=== PATIENT | female | born 1990 | race Caucasian/White ===

== ENCOUNTER 2016-12-02 13:57 | Inpatient (IN) | payer OTHER ==
[~2016-12-02] VITALS: Ht 162.6 cm; Wt 123.1 kg
[~2016-12-02 13:57] MED LIST: ABILIFY5 MG PO; AMOXICILLIN500 MG PO; ARIPIPRAZOLE10 MG PO; CONCERTA36 MG; CORTISPORIN-TC10 M1 RIGHT EAR; DELTASONE20 M1 PO; EXCEDRIN EXTRA1 EACH PO; HYDROXYZINE HCL25 MG PO; LORAZEPAM1 MG PO; METRONIDAZOLE500 MG PO; PRAZOSIN HCL1 MG PO; PRAZOSIN HCL2 MG PO; PREDNISONE20 MG PO; PROMETHAZINE HC25 M1 PO; PROPRANOLOL HCL80 MG; RANITIDINE HCL300 MG PO; SPRINTEC1 EACH; TOPAMAX25 MG PO; TOPAMAX50 MG PO; TRAZODONE HCL50 MG PO; TYLENOL WITH C1 EACH PO; VENTOLIN HFA18 GM IH; VITAMIN D2000 UNI1 PO; ZOMIG5 MG; Zoloft
[2016-12-02 15:28] LABS: HEMATOCRIT 40.6 % (36.0-46.0); MCH 30.8 PG (29.0-34.0); MCHC 34.5 G/DL (30.0-36.0); MCV 89.4 FL (83-99); MEAN PLAT.VOLUME 9.9 uM^3 (9.5-12.4); PLATELET COUNT 303 K/uL (156-360); RBC DIS.WIDTH-CV 12.5 % (11.8-14.6); RBC DIS.WIDTH-SD 40.8 % (39-53); RED BLOOD COUNT 4.54 M/uL (3.80-5.20); WHITE BLOOD COUNT 12.3 K/uL (4.1-10.2)
[2016-12-02 15:36] LABS: CHLORIDE 107 mEq/L (99-109); POTASSIUM 4.1 mEq/L (3.7-5.4); SODIUM 140 mEq/L (136-147)
[2016-12-02 15:38] LABS: GLUCOSE 82 mg/dL (70-99)
[2016-12-02 15:39] LABS: ANION GAP 10 MEQ/L (2-14)
[2016-12-02 15:41] LABS: SERUM ETHYL ALCOHOL < 10 mg/dL
[2016-12-02 15:42] LABS: GFR ESTIMATE (CALCULATED) > 59 mL/min/
[2016-12-02 15:44] LABS: UREA NITROGEN (BUN) 11 mg/dL (9-23)
[2016-12-02 15:45] LABS: SALICYLATE < 5.0 MG/DL (15-30)
[2016-12-02 16:28] LABS: AMPHETAMINE NEGATIVE (500 ng/mL); BARBITURATES NEGATIVE (200 ng/mL); BENZODIAZEPINES NEGATIVE (150 ng/mL); COCAINE NEGATIVE (150 ng/mL); INTERNAL CONTROLS VALID? YES; METHADONE NEGATIVE (200 ng/mL); METHAMPHETAMINE NEGATIVE (500 ng/mL); OPIATES (MORPHINE) NEGATIVE (100 ng/mL); OXYCODONE NEGATIVE (100 ng/mL); PHENCYCLIDINE NEGATIVE (25 ng/mL); PROPOXYPHENE NEGATIVE (300 ng/mL); THC CANNABINOIDS NEGATIVE (50 ng/mL); TRICYCLIC ANTIDEPRESSANTS NEGATIVE (300 ng/mL)
[2016-12-02] MEDS ORDERED: EFFEXOR XR150 MG PO (17:09)
[2016-12-02] MEDS ORDERED: PRAZOSIN HCL2 MG PO (17:10)
[2016-12-02] MEDS ORDERED: CLARITIN,ALAVAR10 MG PO (17:10)
[2016-12-02] MEDS ORDERED: TUSSIN DM LIQU118 ML PO (17:10)
[2016-12-02] MEDS ORDERED: ABILIFY20 MG PO (17:11)
[2016-12-02 17:52] VITALS: BP 127/88
[2016-12-02] MEDS ORDERED: DULERA 200 MCG/13 GM IH (18:02)
[2016-12-03 08:02] VITALS: BP 113/70
[2016-12-03 15:55] VITALS: BP 123/63
[2016-12-04 07:34] VITALS: BP 91/52
[2016-12-04 15:21] VITALS: BP 82/44
[2016-12-04 19:41] VITALS: BP 120/72
[2016-12-05 07:58] VITALS: BP 100/59
[2016-12-05 15:38] VITALS: BP 125/73
[2016-12-06 07:44] VITALS: BP 104/53
[2016-12-06 15:23] VITALS: BP 114/74
[2016-12-07 07:31] VITALS: BP 91/53
[2016-12-07 16:08] VITALS: BP 117/70
[2016-12-08 08:04] VITALS: BP 99/57
[2016-12-08 16:14] VITALS: BP 94/55
[2016-12-09 07:53] VITALS: BP 95/51
[2016-12-09 15:48] VITALS: BP 107/70
[2016-12-10 07:39] VITALS: BP 101/54
[2016-12-10 15:27] VITALS: BP 108/70
[2016-12-11 07:44] VITALS: BP 83/44
[2016-12-11 15:31] VITALS: BP 123/64
[2016-12-12 07:42] VITALS: BP 116/68
[2016-12-12 15:50] VITALS: BP 111/58
[2016-12-13 07:49] VITALS: BP 98/50
[2016-12-13] MEDS ORDERED: GEODON40 MG PO (09:56)
[2016-12-13] MEDS ORDERED: PRAZOSIN HCL5 MG PO (09:56)
[2016-12-13] MEDS ORDERED: BUPROPION XL300 MG PO (09:56)
[2016-12-13] MEDS ORDERED: PRAZOSIN HCL2 MG PO (09:56)
== END 2016-12-13 13:01 | disposition home or self-care (01) | DRG 885 ==
LOC: EME → EDBD 13:57 → EME 13:57 → EDOF 16:21 → 1WEST 16:21
PROVIDERS: Emergency Medicine
DX: F31.5 Bipolar disorder, current episode depressed, severe, with psychotic features (principal); F43.10 Post-traumatic stress disorder, unspecified; F60.3 Borderline personality disorder; R45.851 Suicidal ideations; K21.9 Gastro-esophageal reflux disease without esophagitis; J45.909 Unspecified asthma, uncomplicated; E66.9 Obesity, unspecified; Z68.42 Body mass index [BMI] 45.0-49.9, adult; Z87.891 Personal history of nicotine dependence
CPT/HCPCS: 80048; 85027; 90839; 94640; 94640 76; 97150 GO; 97165 GO; 99281; 99285; G0480; Q0177

== ENCOUNTER 2017-05-26 18:07 | Emergency (ER) | payer OTHER ==
[~2017-05-26] VITALS: Ht 162.6 cm; Wt 113.8 kg
[~2017-05-26 18:07] MED LIST changes: +ABILIFY20 MG PO; +BUPROPION XL300 MG PO; +CLARITIN,ALAVAR10 MG PO; +DULERA 200 MCG/13 GM IH; +EFFEXOR XR150 MG PO; +GEODON40 MG PO; +PRAZOSIN HCL5 MG PO; +TUSSIN DM LIQU118 ML PO
[2017-05-26 19:42] LABS: HEMATOCRIT 44.3 % (36.0-46.0); MCHC 34.3 G/DL (30.0-36.0); MCV 90.2 FL (83-99); MEAN PLAT.VOLUME 10.9 uM^3 (9.5-12.4); PLATELET COUNT 273 K/uL (156-360); RBC DIS.WIDTH-CV 12.2 % (11.8-14.6); RBC DIS.WIDTH-SD 39.9 % (39-53); RED BLOOD COUNT 4.91 M/uL (3.80-5.20); WHITE BLOOD COUNT 15.6 K/uL (4.1-10.2)
[2017-05-26 19:53] LABS: CHLORIDE 102 mEq/L (99-109); POTASSIUM 4.2 mEq/L (3.7-5.4); SODIUM 137 mEq/L (136-147)
[2017-05-26 19:55] LABS: GLUCOSE 95 mg/dL (70-99)
[2017-05-26 19:56] LABS: ANION GAP 12 MEQ/L (2-14)
[2017-05-26 19:57] LABS: TOTAL BILIRUBIN 1.2 mg/dL (0.0-1.0)
[2017-05-26 19:58] LABS: ALKALINE PHOSPHATASE 88 IU/L (3-129)
[2017-05-26 19:59] LABS: GFR ESTIMATE (CALCULATED) > 59 mL/min/
[2017-05-26 20:00] LABS: DIRECT BILIRUBIN 0.4 mg/dL (0.0-0.3); UREA NITROGEN (BUN) 7 mg/dL (9-23)
[2017-05-26 20:02] LABS: LIPASE 27 U/L (1.0-51.0)
[2017-05-26 20:10] LABS: QUANTITATIVE HCG < 4.0 MIU/ML
[2017-05-26] MEDS ORDERED: CIPRO500 MG PO (20:18)
[2017-05-26 21:12] VITALS: BP 133/92
== END 2017-05-26 21:12 | disposition home or self-care (01) ==
LOC: EME 18:07
PROVIDERS: Emergency Medicine
DX: N10 Acute pyelonephritis (principal); F43.10 Post-traumatic stress disorder, unspecified; F31.9 Bipolar disorder, unspecified; F41.9 Anxiety disorder, unspecified; Z87.891 Personal history of nicotine dependence; F12.90 Cannabis use, unspecified, uncomplicated
CPT/HCPCS: 74176; 80048; 80076; 81003; 83690; 84702; 85027; 87077; 87086; 87186; 99281; 99284

== ENCOUNTER 2017-06-25 10:15 | Emergency (ER) | payer OTHER ==
[~2017-06-25] VITALS: Ht 162.6 cm; Wt 114.0 kg
[~2017-06-25 10:15] MED LIST changes: +CIPRO500 MG PO
[2017-06-25] MEDS ORDERED: NAPROSYN500 MG PO (11:50)
[2017-06-25 12:54] VITALS: BP 112/70
== END 2017-06-25 12:57 | disposition home or self-care (01) ==
LOC: EME 10:15
DX: M25.562 Pain in left knee (principal); M25.552 Pain in left hip
CPT/HCPCS: 73502; 73564; 99281; 99284; J1885

== ENCOUNTER 2017-09-18 12:22 | Inpatient (IN) | payer OTHER ==
[~2017-09-18] VITALS: Ht 162.6 cm; Wt 111.2 kg
[~2017-09-18 12:22] MED LIST changes: +NAPROSYN500 MG PO
[2017-09-18 13:02] LABS: BASOPHIL (%) 0.4 % (0-1); EOSINOPHIL (%) 0.3 % (0-5); HEMATOCRIT 41.9 % (36.0-46.0); HEMOGLOBIN 14.5 G/DL (11.9-15.5); IMMATURE GRANULOCYTE (%) 0.5 % (0.0-0.7); LYMPHOCYTE (%) 21.5 % (15-42); LYMPHOCYTE COUNT 2.2 K/uL (1.0-2.8); MCH 30.9 PG (29.0-34.0); MCHC 34.6 G/DL (30.0-36.0); MCV 89.3 FL (83-99); MONOCYTE (%) 4.4 % (3-12); MONOCYTE COUNT 0.4 K/uL (0-0.8); NEUTROPHIL (%) 72.9 % (45-76); NEUTROPHIL COUNT 7.4 K/uL (1.8-6.4); PLATELET COUNT 267 K/uL (156-360); RBC DIS.WIDTH-CV 12.5 % (11.8-14.6); RBC DIS.WIDTH-SD 40.2 % (39-53); RED BLOOD COUNT 4.69 M/uL (3.80-5.20); WHITE BLOOD COUNT 10.1 K/uL (4.1-10.2)
[2017-09-18 13:15] LABS: CHLORIDE 108 mEq/L (99-109); POTASSIUM 3.8 mEq/L (3.7-5.4); SODIUM 139 mEq/L (136-147)
[2017-09-18 13:16] LABS: GLUCOSE 97 mg/dL (70-99)
[2017-09-18 13:20] LABS: CREATININE 0.8 mg/dL (0.6-1.3); GFR ESTIMATE (CALCULATED) > 59 mL/min/; SERUM ETHYL ALCOHOL < 10 mg/dL
[2017-09-18 13:21] LABS: UREA NITROGEN (BUN) 10 mg/dL (9-23)
[2017-09-18 13:28] LABS: QUANTITATIVE HCG < 4.0 MIU/ML
[2017-09-18 14:16] LABS: AMPHETAMINE NEGATIVE (500 ng/mL); BARBITURATES NEGATIVE (200 ng/mL); BENZODIAZEPINES NEGATIVE (150 ng/mL); BUPRENORPHINE NEGATIVE (10 ng/mL); COCAINE NEGATIVE (150 ng/mL); METHADONE NEGATIVE (200 ng/mL); METHAMPHETAMINE NEGATIVE (500 ng/mL); OPIATES (MORPHINE) NEGATIVE (100 ng/mL); OXYCODONE NEGATIVE (100 ng/mL); PHENCYCLIDINE NEGATIVE (25 ng/mL); PROPOXYPHENE NEGATIVE (300 ng/mL); THC CANNABINOIDS PRESUMPTIVE POSITIVE (50 ng/mL); TRICYCLIC ANTIDEPRESSANTS NEGATIVE (300 ng/mL)
[2017-09-18 14:41] LABS: APPEARANCE SL.HAZY ((CLEAR)); BILIRUBIN NEGATIVE; BLOOD TRACE; COLOR YELLOW ((YELLOW)); GLUCOSE (STRIP) NEGATIVE; KETONES NEGATIVE; LEUKOCYTES NEGATIVE; NITRITE NEGATIVE; PH, URINE 6.5 (5-8); PROTEIN (STRIP) TRACE; UROBILINOGEN 0.2 MG/DL (0.2-1.0)
[2017-09-18] MEDS ORDERED: CLONIDINE HCL0.1 MG PO (15:00)
[2017-09-18] MEDS ORDERED: LITHOBID300 MG PO (15:01)
[2017-09-18] MEDS ORDERED: GEODON80 MG PO (15:01)
[2017-09-18] MEDS ORDERED: TOPIRAMATE100 MG PO (15:02)
[2017-09-18 15:45] LABS: BACTERIA 2+ /HPF; EPITHELIAL CELLS 2+ /HPF; MUCUS 3+ /LPF; RED BLOOD CELLS 0-5 /HPF (0-5); WHITE BLOOD CELLS RARE /HPF (0-5)
[2017-09-18 15:59] VITALS: BP 119/70
[2017-09-19 07:34] VITALS: BP 90/53
[2017-09-19] MEDS ORDERED: LITHIUM CARBON600 MG PO (09:18)
[2017-09-19 15:22] VITALS: BP 113/65
[2017-09-20 07:44] VITALS: BP 128/80
[2017-09-20 15:29] VITALS: BP 117/76
[2017-09-21 07:36] VITALS: BP 118/58
[2017-09-21 15:32] VITALS: BP 118/66
[2017-09-22 07:33] VITALS: BP 115/70
[2017-09-22 15:24] VITALS: BP 106/71
[2017-09-23 07:30] VITALS: BP 100/60
[2017-09-23 15:29] VITALS: BP 102/68
[2017-09-24 07:35] VITALS: BP 81/45
[2017-09-24 15:32] VITALS: BP 101/54
[2017-09-25 07:48] VITALS: BP 90/51
[2017-09-25] MEDS ORDERED: ZYPREXA7.5 MG PO (09:19)
[2017-09-25] MEDS ORDERED: INDERAL10 MG PO (09:20)
== END 2017-09-25 13:20 | disposition home or self-care (01) | DRG 885 ==
LOC: EME 12:22 → EDOF 14:02 → 1WEST 14:02 → ENRESERV 14:59 → 1WEST 15:00
PROVIDERS: Emergency Medicine
DX: F31.5 Bipolar disorder, current episode depressed, severe, with psychotic features (principal); R45.851 Suicidal ideations; F43.12 Post-traumatic stress disorder, chronic; F12.10 Cannabis abuse, uncomplicated; F60.3 Borderline personality disorder; F41.8 Other specified anxiety disorders; J45.909 Unspecified asthma, uncomplicated; G43.909 Migraine, unspecified, not intractable, without status migrainosus; Z81.8 Family history of other mental and behavioral disorders; Z87.891 Personal history of nicotine dependence
CPT/HCPCS: 80048; 80178; 81003; 84702; 84999; 85025; 90839; 94640; 94640 76; 97150 GO; 97165 GO; 99281; 99284; G0480